=== PATIENT | male | born 1985 | race Two or more races ===

== ENCOUNTER 2019-04-19 22:01 | Observation (INO) | payer SELFPAY | END 2019-04-20 09:31 | disposition home or self-care (01) | LOC: D.ER 22:01 → D.MS 04-20 01:41 | PROVIDERS: ADMIT Family Medicine | DX: F10.129 Alcohol abuse with intoxication, unspecified (principal); F15.129 Other stimulant abuse with intoxication, unspecified; Y90.8 Blood alcohol level of 240 mg/100 ml or more ==